=== PATIENT | male | born 1960 | race Caucasian/White ===

== ENCOUNTER 2018-07-19 16:22 | Emergency (ER) | payer BC ==
[2018-07-19] MEDS ORDERED: Ondansetron 4 MG/2 ML SDV IVPUSH ONE (16:50)
[2018-07-19] MEDS ORDERED: Sodium Chloride 0.9% 10 ML Syringe FLUSH PRN (16:50)
[2018-07-19] MEDS ORDERED: Sodium Chloride 0.9% 1,000 ML IV SCH (17:00)
--- NOTE | 2018-07-19 17:34 | EDM.PDOC ---
ED HPI GENERAL MEDICAL PROBLEM - General Chief Complaint: Gastrointestinal Problem Stated Complaint: NAUSEA Time Seen by Provider: 07/19/18 16:46 Source of Information: Reports: Patient History Limitations: Reports: No Limitations - History of Present Illness INITIAL COMMENTS - FREE TEXT/NARRATIVE: The patient presents with nausea and not feeling good. This started today. He has been drinking more lately. His girlfriend left him and he has increased his drinking. He has a subjective fever and chills. He has nausea and vomiting but no pain in his abdomen. He has no chest pain or shortness of breath. He did not take 4 of his meds. He was concerned that may be the cause. Onset: Gradual Duration: Hour(s): Severity: Moderate Improves with: Reports: None Worsens with: Reports: None Associated Symptoms: Reports: Nausea/Vomiting. Denies: Chest Pain, Cough, Fever /Chills, Headaches, Shortness of Breath - Related Data Allergies Allergy/AdvReac Type Severity Reaction Status Date / Time No Known Allergies Allergy Verified 07/19/18 16:30 Home Meds: Home Meds Aspirin 325 mg PO DAILY 12/25/14 [History] Carvedilol 12.5 mg PO BID 12/25/14 [History] Clopidogrel [Plavix] 75 mg PO DAILY 12/25/14 [History] Famotidine 20 mg PO BID 12/25/14 [History] Folic Acid 1 cap PO DAILY 12/25/14 [History] Magnesium Oxide 400 mg PO DAILY 12/25/14 [History] Nitroglycerin 0.4 mg SL DAILY PRN 12/25/14 [History] Thiamine [Vitamin B-1] 50 mg PO DAILY 12/25/14 [History] buPROPion [Wellbutrin SR] 150 mg PO BID 11/28/16 [History] Amiodarone [Cordarone] 400 mg PO DAILY 07/19/18 [History] Diltiazem HCl [Cardizem] 120 mg PO DAILY 07/19/18 [History] Past Medical History HEENT History: Reports: Impaired Vision Cardiovascular History: Reports: High Cholesterol, Hypertension, [place] Gastrointestinal History: Reports: GERD Neurological History: Reports: Other (See Below) Other Neuro History: seizures when he was younger, has not had a seizure for 40 years Other Psychiatric History: problems with alcohol - Past Surgical History GI Surgical History: Reports: Hernia Repair/Other Social & Family History - Family History Family Medical History: Noncontributory - Tobacco Use Smoking Status *Q: Former Smoker Used Tobacco, but Quit: No - Caffeine Use Caffeine Use: Reports: Soda - Alcohol Use Days Per Week of Alcohol Use: 7 Number of Drinks Per Day: 10 Total Drinks Per Week: 70 Date of Last Drink: 07/19/18 Time of Last Drink: 14:00 - Recreational Drug Use Recreational Drug Use: No Other Recreational Drug Type: quit smoking marijuana about a 1 year ago ED ROS GENERAL - Review of Systems Review Of Systems: See Below Constitutional: Reports: No Symptoms HEENT: Reports: No Symptoms Respiratory: Reports: No Symptoms Cardiovascular: Reports: No Symptoms Endocrine: Reports: No Symptoms GI/Abdominal: Reports: Nausea, Vomiting. Denies: Abdominal Pain, Diarrhea : Reports: No Symptoms Musculoskeletal: Reports: No Symptoms ED EXAM, GI/ABD - Physical Exam Exam: See Below Exam Limited By: No Limitations General Appearance: Alert, No Apparent Distress Ears: Normal External Exam Nose: Normal Inspection Head: Atraumatic, Normocephalic Neck: Normal Inspection Respiratory/Chest: No Respiratory Distress, Lungs Clear, Normal Breath Sounds Cardiovascular: Regular Rate, Rhythm, No Edema, No Murmur GI/Abdominal Exam: Soft, Non-Tender, No Organomegaly, No Mass Course - Vital Signs Last Recorded V/S: Last Vital Signs Temp 98.5 F 07/19/18 16:26 Pulse 92 07/19/18 16:26 Resp 18 07/19/18 16:26 BP 187/102 H 07/19/18 16:26 Pulse Ox 97 07/19/18 16:26 - Orders/Labs/Meds Orders: Active Orders 24 hr Category Date Time Status Cardiac Monitoring [RC] . DIRECTED Care 07/19/18 16:50 Active EKG Documentation Completion [RC] ASDIRECTED Care 07/19/18 17:46 Active Peripheral IV Care [RC] . DIRECTED Care 07/19/18 16:51 Active CXR [Chest 1V Frontal] [CR] Stat Exams 07/19/18 18:09 Ordered CBC W/O DIFF,HEMOGRAM [HEME] MOTH@0700 Lab 07/21/18 07:00 Ordered CBC W/O DIFF,HEMOGRAM [HEME] MOTH@0700 Lab 07/24/18 07:00 Ordered CBC W/O DIFF,HEMOGRAM [HEME] MOTH@0700 Lab 07/28/18 07:00 Ordered CBC W/O DIFF,HEMOGRAM [HEME] MOTH@0700 Lab 07/31/18 07:00 Ordered CBC W/O DIFF,HEMOGRAM [HEME] MOTH@0700 Lab 08/04/18 07:00 Ordered CBC W/O DIFF,HEMOGRAM [HEME] MOTH@0700 Lab 08/07/18 07:00 Ordered Heparin Sodium/D5W [Heparin 25,000 Units in D5W 500 ML] Med 07/19/18 18:15 Ordered 25,000 units in 500 ml IV TITRATE Nitroglycerin/D5W [Nitroglycerin 25 MG/D5W 250 ML] Med 07/19/18 18:15 Ordered 25 mg in 250 ml IV TITRATE Sodium Chloride 0.9% [Normal Saline] 1,000 ml Med 07/19/18 17:00 Active IV .BOLUS Sodium Chloride 0.9% [Saline Flush] Med 07/19/18 16:50 Active 10 ml FLUSH ASDIRECTED PRN ED Antiemetic Medication Reflex [OM.PC] Stat Oth 07/19/18 16:50 Ordered Peripheral IV Insertion Adult [OM.PC] Stat Oth 07/19/18 16:50 Ordered EKG 12 Lead [EK] Stat Ther 07/19/18 17:45 Ordered Medication Orders Sodium Chloride (Normal Saline) 1,000 mls @ 1,000 mls/hr IV .BOLUS DOMINIK Last Admin: 07/19/18 16:56 Dose: 1,000 mls/hr Heparin Sodium/Dextrose (Heparin 25,000 Units In D5w 500 Ml) 25,000 units in 500 mls @ 18.416 mls/hr IV TITRATE DOMINIK; Protocol Nitroglycerin/Dextrose (Nitroglycerin 25 Mg/D5w 250 Ml) 25 mg in 250 mls @ 3 mls/hr IV TITRATE DOMINIK; Protocol Sodium Chloride (Saline Flush) 10 ml FLUSH ASDIRECTED PRN PRN Reason: Keep Vein Open Last Admin: 07/19/18 16:56 Dose: 10 ml Labs: Laboratory Tests 07/19/18 07/19/18 07/19/18 Range/Units 16:43 16:43 16:43 WBC 6.39 (4.23-9.07) K/mm3 RBC 4.55 L (4.63-6.08) M/mm3 Hgb 15.0 (13.7-17.5) gm/L Hct 43.0 (40.1-51.0) % MCV 94.5 H (79.0-92.2) fl MCH 33.0 H (25.7-32.2) pg MCHC 34.9 (32.2-35.5) g/dl RDW Std Deviation 42.5 (35.1-43.9) fL Plt Count 230 (163-337) K/mm3 MPV 10.5 (9.4-12.3) fl Neut % (Auto) 66.6 (34.0-67.9) % Lymph % (Auto) 18.5 L (21.8-53.1) % Wirt % (Auto) 8.9 (5.3-12.2) % Eos % (Auto) 3.3 (0.8-7.0) Baso % (Auto) 2.5 H (0.1-1.2) % Neut # (Auto) 4.26 (1.78-5.38) K/mm3 Lymph # (Auto) 1.18 L (1.32-3.57) K/mm3 Wirt # (Auto) 0.57 (0.30-0.82) K/mm3 Eos # (Auto) 0.21 (0.04-0.54) K/mm3 Baso # (Auto) 0.16 H (0.01-0.08) K/mm3 Sodium 140 (136-145) mEq/L Potassium 3.4 L (3.5-5.1) mEq/L Chloride 103 (98-107) mEq/L Carbon Dioxide 26 (21-32) mEq/L Anion Gap 14.4 (5-15) BUN 7 (7-18) mg/dL Creatinine 1.2 (0.7-1.3) mg/dL Est Cr Clr Drug Dosing 57.56 mL/min Estimated GFR (MDRD) > 60 (>60) mL/min BUN/Creatinine Ratio 5.8 L (14-18) Glucose 115 H (74-106) mg/dL Calcium 8.7 (8.5-10.1) mg/dL Total Bilirubin 0.8 (0.2-1.0) mg/dL AST 64 H (15-37) U/L ALT 46 (16-63) U/L Alkaline Phosphatase 41 L (46-116) U/L Troponin I 0.194 H* (0.00-0.056) ng/mL Total Protein 7.6 (6.4-8.2) g/dl Albumin 4.0 (3.4-5.0) g/dl Globulin 3.6 gm/dL Albumin/Globulin Ratio 1.1 (1-2) Lipase 126 (73-393) U/L Ethyl Alcohol 0.01 (0.00) gm% Meds: Medications Generic Name Dose Route Start Last Admin Trade Name Freq PRN Reason Stop Dose Admin Sodium Chloride 1,000 mls @ 1,000 mls/hr 07/19/18 17:00 07/19/18 16:56 Normal Saline IV 1,000 mls/hr .BOLUS DOMINIK Administration Heparin Sodium/Dextrose 25,000 units in 500 mls @ 18.416 mls/hr 07/19/18 18: 15 Heparin 25,000 Units In D5w 500 Ml IV TITRATE DOMINIK Protocol 14 UNITS/KG/HR Nitroglycerin/Dextrose 25 mg in 250 mls @ 3 mls/hr 07/19/18 18:15 Nitroglycerin 25 Mg/D5w 250 Ml IV TITRATE DOMINIK Protocol Sodium Chloride 10 ml 07/19/18 16:50 07/19/18 16:56 Saline Flush FLUSH 10 ml ASDIRECTED PRN Administration Keep Vein Open Discontinued Medications Generic Name Dose Route Start Last Admin Trade Name Alanq PRN Reason Stop Dose Admin Aspirin 324 mg 07/19/18 18:10 Aspirin PO 07/19/18 18:11 ONETIME ONE Heparin Sodium (Porcine) 4,000 units 07/19/18 18:12 Heparin Sodium IVPUSH 07/19/18 18:13 ONETIME ONE Metoprolol Tartrate 5 mg 07/19/18 18:14 Lopressor IVPUSH 07/19/18 18:15 ONETIME ONE Ondansetron HCl 4 mg 07/19/18 16:50 07/19/18 16:56 Zofran IVPUSH 07/19/18 16:51 4 mg ONETIME ONE Administration Pantoprazole Sodium 40 mg 07/19/18 17:46 07/19/18 17:52 Protonix Iv IVPUSH 07/19/18 17:47 40 mg ONETIME ONE Administration - Re-Assessments/Exams Free Text/Narrative Re-Assessment/Exam: 07/19/18 17:39 I ordered an IV NS 1L bolus, zofran 4mg IV and labs. His CBC looks good. His K is a little low at 3.4. His glucose is 115. His AST is elevated at 64. His lipase is negative. His ETOH was 0.01. 07/19/18 18:15 He is feeling better. He says he has some burning in his chest. He has reflux and that is normal for him. I then got an EKG that shows a NSR at a rate of [address] depression in the lateral leads. I then ordered a troponin. His troponin came back elevated at 0.194. He is having a nonSTEMI. I ordered a CXR, aspirin, nitro drip, heparin bolus of 4,000 units and a drip at 1,000untis/hr. I called [facility] in [place] and talked with Dr Galarza the hospitalist and Dr Pérez the chrome plater helper and they accepted the patient. His blood pressure was elevated so I ordered lopressor. 07/19/18 18:23 Dr Pérez did not want the heparin for now because the patient is a heavy drinker and he may have some esophageal issues and that could make him bleed. He wanted the troponins rechecked and his blood pressure treated. Departure - Departure Time of Disposition: 18:25 Disposition: DC/Tfer to Acute Hospital 02 Condition: Fair Clinical Impression: Non-STEMI (non-ST elevated myocardial infarction), Alcohol abuse - Discharge Information Referrals: Danilo Barker MD [Primary Care Provider] - Forms: ED Department Discharge - My Orders Last 24 Hours: My Active Orders 07/19/18 16:50 Cardiac Monitoring [RC] . DIRECTED Sodium Chloride 0.9% [Saline Flush] 10 ml FLUSH ASDIRECTED PRN ED Antiemetic Medication Reflex [OM.PC] Stat Peripheral IV Insertion Adult [OM.PC] Stat 07/19/18 16:51 Peripheral IV Care [RC] . DIRECTED 07/19/18 17:00 Sodium Chloride 0.9% [Normal Saline] 1,000 ml IV .BOLUS 07/19/18 17:45 EKG 12 Lead [EK] Stat 07/19/18 17:46 EKG Documentation Completion [RC] ASDIRECTED 07/19/18 18:09 CXR [Chest 1V Frontal] [CR] Stat 07/19/18 18:15 Heparin Sodium/D5W [Heparin 25,000 Units in D5W 500 ML] 25,000 units in 500 ml IV TITRATE Nitroglycerin/D5W [Nitroglycerin 25 MG/D5W 250 ML] 25 mg in 250 ml IV TITRATE 07/21/18 07:00 CBC W/O DIFF,HEMOGRAM [HEME] MOTH@0700 07/24/18 07:00 CBC W/O DIFF,HEMOGRAM [HEME] MOTH@00 07/28/18 07:00 CBC W/O DIFF,HEMOGRAM [HEME] MOTH@00 07/31/18 07:00 CBC W/O DIFF,HEMOGRAM [HEME] MOTH@0700 08/04/18 07:00 CBC W/O DIFF,HEMOGRAM [HEME] MOTH@0700 08/07/18 07:00 CBC W/O DIFF,HEMOGRAM [HEME] MOTH@0700 - Assessment/Plan Last 24 Hours: My Active Orders 07/19/18 16:50 Cardiac Monitoring [RC] . DIRECTED Sodium Chloride 0.9% [Saline Flush] 10 ml FLUSH ASDIRECTED PRN ED Antiemetic Medication Reflex [OM.PC] Stat Peripheral IV Insertion Adult [OM.PC] Stat 07/19/18 16:51 Peripheral IV Care [RC] . DIRECTED 07/19/18 17:00 Sodium Chloride 0.9% [Normal Saline] 1,000 ml IV .BOLUS 07/19/18 17:45 EKG 12 Lead [EK] Stat 07/19/18 17:46 EKG Documentation Completion [RC] ASDIRECTED 07/19/18 18:09 CXR [Chest 1V Frontal] [CR] Stat 07/19/18 18:15 Heparin Sodium/D5W [Heparin 25,000 Units in D5W 500 ML] 25,000 units in 500 ml IV TITRATE Nitroglycerin/D5W [Nitroglycerin 25 MG/D5W 250 ML] 25 mg in 250 ml IV TITRATE 07/21/18 07:00 CBC W/O DIFF,HEMOGRAM [HEME] MOTH@0700 07/24/18 07:00 CBC W/O DIFF,HEMOGRAM [HEME] MOTH@0700 18 07:00 CBC W/O DIFF,HEMOGRAM [HEME] MOTH@69907/31/18 07:00 CBC W/O DIFF,HEMOGRAM [HEME] MOTH@69908/04/18 07:00 CBC W/O DIFF,HEMOGRAM [HEME] MOTH@69908/07/18 07:00 CBC W/O DIFF,HEMOGRAM [HEME] MOTH@699
[2018-07-19] MEDS ORDERED: Pantoprazole 40 MG Vial IVPUSH ONE (17:46)
[2018-07-19] MEDS ORDERED: Aspirin 81 MG Tab.Chew PO ONE (18:10)
[2018-07-19] MEDS ORDERED: Heparin Sodium 5,000 Units/ML Vial IVPUSH ONE (18:12)
[2018-07-19] MEDS ORDERED: Metoprolol Tartrate 5 MG/5 ML SDV IVPUSH ONE (18:14)
[2018-07-19] MEDS ORDERED: Metoprolol Tartrate 5 MG in Sodium Chloride 0.9% 50 ML IV ONE (18:14)
[2018-07-19] MEDS ORDERED: Heparin Sodium/D5W 25,000 UNITS/500 ML BAG IV SCH (18:15)
[2018-07-19] MEDS ORDERED: Nitroglycerin/D5W 25 MG/250 ML BOTTLE IV SCH (18:15)
[2018-07-19] MEDS ORDERED: Metoprolol Tartrate 5 MG/5 ML SDV ONE (18:44)
[2018-07-19] MEDS ORDERED: Metoprolol Tartrate 5 MG/5 ML SDV IVPUSH SCH (18:45)
[2018-07-19 18:53] VITALS: BP 162/93
--- NOTE | 2018-07-21 07:13 | CR ---
Chest: Portable view of the chest was obtained. Comparison: Prior chest x-ray of 11/28/16. Heart size and mediastinum are within normal limits for portable technique. AICD is present. Lungs are clear with no acute parenchymal change. Bony structures are grossly intact. Impression: 1. Nothing acute is seen on portable chest x-ray. Diagnostic code #2
== END 2018-07-19 19:00 ==
LOC: JD.ED 16:22
DX: I21.4 Non-ST elevation (NSTEMI) myocardial infarction (principal); I10 Essential (primary) hypertension; F10.10 Alcohol abuse, uncomplicated; Y90.0 Blood alcohol level of less than 20 mg/100 ml; Z79.82 Long term (current) use of aspirin; Z87.891 Personal history of nicotine dependence
CPT/HCPCS: 36415; 71045; 80053; 83690; 84484; 85025; 93005; 96361; 96365; 96375; 99285; A9270; C9113; G0480; J2405; J3490; J7040; J7050; 93010

== ENCOUNTER 2019-12-20 00:38 | Emergency (ER) | payer BC ==
[2019-12-20 01:06] VITALS: BP 150/82; PULSE 63
[2019-12-20] MEDS ORDERED: Sodium Chloride 0.9% 10 ML Syringe FLUSH PRN (01:30)
[2019-12-20] MEDS ORDERED: diphenhydrAMINE 50 MG/ML SDV IVPUSH ONE (01:31)
[2019-12-20] MEDS ORDERED: Metoclopramide 10 MG/2 ML SDV IVPUSH ONE (01:31)
[2019-12-20] MEDS ORDERED: Ketorolac 30 MG/ML SDV IVPUSH ONE (01:31)
--- NOTE | 2019-12-20 01:52 | EDM.PDOC ---
ED HPI GENERAL MEDICAL PROBLEM - General Chief Complaint: Headache Stated Complaint: neck pain and headache Time Seen by Provider: 12/20/19 01:07 Source of Information: Reports: Patient History Limitations: Reports: No Limitations - History of Present Illness INITIAL COMMENTS - FREE TEXT/NARRATIVE: The patient presents with a headache and neck pain. He says the neck pain started yesterday and got worse and now he has a headache. He has no fever, chills, cough, congestion, runny nose, chest pain, shortness of breath, abdominal pain, nausea or vomiting. He had no trauma. He has no numbness or weakness. He has no blurred vision or double vision. He says he quit drinking about 10 days ago. He is not shaking and has no other withdrawal symptoms. Onset: Sudden Duration: Hour(s): Location: Reports: Head Quality: Reports: Ache Severity: Severe Improves with: Reports: None Worsens with: Reports: None Associated Symptoms: Reports: Headaches. Denies: Chest Pain, Cough, Fever/ Chills, Nausea/Vomiting, Shortness of Breath Headache Pain Score (Numeric/FACES): 10 - Related Data Allergies Allergy/AdvReac Type Severity Reaction Status Date / Time No Known Allergies Allergy Verified 12/20/19 01:12 Home Meds: Home Meds Aspirin 325 mg PO DAILY 12/25/14 [History] Clopidogrel [Plavix] 75 mg PO DAILY 12/25/14 [History] Famotidine 20 mg PO BID 12/25/14 [History] Folic Acid 1 cap PO DAILY 12/25/14 [History] Magnesium Oxide 400 mg PO DAILY 12/25/14 [History] Nitroglycerin 0.4 mg SL DAILY PRN 12/25/14 [History] Thiamine [Vitamin B-1] 50 mg PO DAILY 12/25/14 [History] carvediloL [Carvedilol] 12.5 mg PO BID 12/25/14 [History] Cyclobenzaprine [Flexeril] 10 mg PO TID PRN #20 tab 12/20/19 [Rx] Past Medical History HEENT History: Reports: Impaired Vision Cardiovascular History: Reports: Arrhythmia, CAD, High Cholesterol, Hypertension , [place] Gastrointestinal History: Reports: GERD Neurological History: Reports: Seizure Other Neuro History: seizures when he was younger, has not had a seizure for 40 years Psychiatric History: Reports: Addiction Other Psychiatric History: problems with alcohol - Past Surgical History Cardiovascular Surgical History: Reports: AICD, Coronary Artery Stent GI Surgical History: Reports: Hernia, Inguinal Social & Family History - Family History Family Medical History: Noncontributory - Tobacco Use Smoking Status *Q: Former Smoker Years of Tobacco use: 35 Used Tobacco, but Quit: Yes Month/Year Tobacco Last Used: 2 - Caffeine Use Caffeine Use: Reports: Soda - Recreational Drug Use Recreational Drug Use: Yes Drug Use in Last 12 Months: No Recreational Drug Type: Reports: Marijuana/Hashish - Living Situation & Occupation Living situation: Reports: (), with Family (Son) Occupation: Employed ([email or web address]) ED ROS GENERAL - Review of Systems Review Of Systems: See Below Constitutional: Reports: No Symptoms HEENT: Reports: No Symptoms Respiratory: Reports: No Symptoms Cardiovascular: Reports: No Symptoms Endocrine: Reports: No Symptoms GI/Abdominal: Reports: No Symptoms : Reports: No Symptoms Musculoskeletal: Reports: Neck Pain Skin: Reports: No Symptoms Neurological: Reports: Headache - Physical Exam Exam: See Below Exam Limited By: No Limitations General Appearance: Alert, No Apparent Distress Eye Exam: Bilateral Eye: EOMI, PERRL Ears: Normal External Exam Nose: Normal Inspection Head Exam: Atraumatic, Normocephalic Neck: Tender Lateral Respiratory/Chest: No Respiratory Distress, Lungs Clear, Normal Breath Sounds Cardiovascular: Regular Rate, Rhythm, No Edema, No Murmur GI/Abdominal: Soft, Non-Tender, No Organomegaly, No Mass Neuro Exam (Abbreviated): Alert, Oriented, No Motor/Sensory Deficits Course - Vital Signs Last Recorded V/S: Last Vital Signs Temp 97.6 F 12/20/19 01:00 Pulse 63 12/20/19 01:00 Resp 18 12/20/19 01:00 BP 150/82 H 12/20/19 01:00 Pulse Ox 98 12/20/19 01:00 - Orders/Labs/Meds Orders: Active Orders 24 hr Category Date Time Status Peripheral IV Care [RC] . DIRECTED Care 12/20/19 01:31 Active Cervical Spine wo Cont [CT] Stat Exams 12/20/19 01:30 Taken Head wo Cont [CT] Stat Exams 12/20/19 01:30 Taken Sodium Chloride 0.9% [Saline Flush] Med 12/20/19 01:30 Active 10 ml FLUSH ASDIRECTED PRN Peripheral IV Insertion Adult [OM.PC] Routine Oth 12/20/19 01:30 Ordered Medication Orders Sodium Chloride (Saline Flush) 10 ml FLUSH ASDIRECTED PRN PRN Reason: Keep Vein Open Last Admin: 12/20/19 01:50 Dose: 10 ml Meds: Medications Generic Name Dose Route Start Last Admin Trade Name Freq PRN Reason Stop Dose Admin Sodium Chloride 10 ml 12/20/19 01:30 12/20/19 01:50 Saline Flush FLUSH 10 ml ASDIRECTED PRN Administration Keep Vein Open Discontinued Medications Generic Name Dose Route Start Last Admin Trade Name Freq PRN Reason Stop Dose Admin Diphenhydramine HCl 50 mg 12/20/19 01:31 12/20/19 01:52 Benadryl IVPUSH 12/20/19 01:32 50 mg ONETIME ONE Administration Ketorolac Tromethamine 30 mg 12/20/19 01:31 12/20/19 01:50 Toradol IVPUSH 12/20/19 01:32 30 mg ONETIME ONE Administration Metoclopramide HCl 10 mg 12/20/19 01:31 12/20/19 01:49 Reglan IVPUSH 12/20/19 01:32 10 mg ONETIME ONE Administration - Re-Assessments/Exams Free Text/Narrative Re-Assessment/Exam: 12/20/19 01:51 I ordered an IV saline lock, toradol 30mg IV, benadryl 50mg IV, reglan 10mg IV, CT of her head and cervical spine. 12/20/19 02:[address] of his head shows atrophy and chronic white matter changes. No acute intracranial abnormality. Calcified retinal drusen in both eyes. The CT of his cervical spine shows no fracture of malalignment. Mild degenerative spondylosis. He still has pain so I will give him a dose of dilaudid and I will discharge him home. I feel this is coming from his neck. Departure - Departure Time of Disposition: 02:45 Disposition: Home, Self-Care 01 Condition: Good Clinical Impression: Tension-type headache, Neck pain - Discharge Information *PRESCRIPTION DRUG MONITORING PROGRAM REVIEWED*: No *COPY OF PRESCRIPTION DRUG MONITORING REPORT IN PATIENT NIDHI: No Prescriptions: Cyclobenzaprine [Flexeril] 10 mg PO TID PRN #20 tab PRN Reason: Pain Referrals: Danilo Barker MD [Primary Care Provider] - Forms: ED Department Discharge Additional Instructions: Take tylenol or motrin for pain. If that does not help, try the flexeril. Follow up with your doctor this week. Please return if you are worse. Sepsis Event Note - Evaluation Sepsis Screening Result: No Definite Risk - Focused Exam Vital Signs: Vital Signs Temp Pulse Resp BP Pulse Ox 12/20/19 01:00 97.6 F 63 18 150/82 H 98 Date Exam was Performed: 12/20/19 Time Exam was Performed: 02:38 - My Orders Last 24 Hours: My Active Orders 12/20/19 01:30 Cervical Spine wo Cont [CT] Stat Head wo Cont [CT] Stat Sodium Chloride 0.9% [Saline Flush] 10 ml FLUSH ASDIRECTED PRN Peripheral IV Insertion Adult [OM.PC] Routine 12/20/19 01:31 Peripheral IV Care [RC] . DIRECTED - Assessment/Plan Last 24 Hours: My Active Orders 12/20/19 01:30 Cervical Spine wo Cont [CT] Stat Head wo Cont [CT] Stat Sodium Chloride 0.9% [Saline Flush] 10 ml FLUSH ASDIRECTED PRN Peripheral IV Insertion Adult [OM.PC] Routine 12/20/19 01:31 Peripheral IV Care [RC] . DIRECTED
[2019-12-20] MEDS ORDERED: HYDROmorphone 0.5 MG/0.5 ML Syringe IVPUSH ONE (02:42)
--- NOTE | 2019-12-20 09:38 | CT ---
CT cervical spine Technique: Multiple axial sections were obtained from above C1 inferiorly to the bottom of T2. Reconstructed sagittal and coronal images were reviewed. Comparison: Prior CT cervical spine exam of 10/18/11. Findings: Posterior disc space narrowing is noted at C2-3. Mild diffuse disc space narrowing at C6-7. Moderate to severe disc space narrowing is noted at C7-T1. Anterior osteophytes are seen primarily at C7-T1. Degenerative change is also noted between the dens and anterior arch of C1. Mild degenerative change is scattered within the apophyseal joints. Moderate neural foraminal narrowing is noted at C3-4 on the left side. Other neural foramina are felt to be fairly well patent. No bony central canal stenosis is seen. No fracture is appreciated. No acute subluxation is appreciated. Impression: 1. Degenerative change which has progressed from previous exam. 2. Nothing acute is appreciated on CT study of the cervical spine. Diagnostic code #2 This report was dictated in [place] Standard Time I agree with preliminary report from [facility], finalized on 12/20/19, 3:25 AM Central Time
--- NOTE | 2019-12-20 09:38 | CT ---
Head CT Technique: Multiple axial sections through the brain were obtained. Intravenous contrast was not utilized. Comparison: Prior head CT exam of 10/18/11. Findings: Areas of encephalomalacia are identified overlying the left parietal convexity. These findings are stable from previous exam. Previous lewis holes are identified bilaterally within the calvarium. Ventricles along with basal cisterns and sulci over the convexities are mildly prominent. Minimal diminished density is noted within the periventricular white matter most likely representing slight small vessel ischemic demyelination change. No evidence of intracranial hemorrhage. No midline shift or mass-effect is appreciated. Calcified retinal drusen are noted on both sides, slightly more prominent on the left side. Bone window settings shows no acute calvarial finding. Scattered mucosal thickening is seen within the ethmoid sinuses believed to be chronic. No acute mastoid sinus findings are seen. Impression: 1. Multiple findings as noted above. 2. Nothing acute is identified on noncontrast head CT exam. Diagnostic code #2 This report was dictated in [place] Standard Time I agree with preliminary report from [facility], finalized on 12/20/19, 3:30 AM Central Time
== END 2019-12-20 03:00 | disposition home or self-care (01) ==
LOC: JD.ED 00:38
DX: G44.209 Tension-type headache, unspecified, not intractable (principal); M54.2 Cervicalgia; I25.10 Atherosclerotic heart disease of native coronary artery without angina pectoris; I10 Essential (primary) hypertension; I25.2 Old myocardial infarction; K21.9 Gastro-esophageal reflux disease without esophagitis; Z95.5 Presence of coronary angioplasty implant and graft; Z95.810 Presence of automatic (implantable) cardiac defibrillator; Z79.82 Long term (current) use of aspirin; Z79.02 Long term (current) use of antithrombotics/antiplatelets; Z79.899 Other long term (current) drug therapy; Z87.891 Personal history of nicotine dependence
CPT/HCPCS: 70450; 72125; 96374; 96375; 99284; J1170; J1200; J1885; J2765

== ENCOUNTER 2021-10-17 13:51 | Emergency (ER) | payer BC ==
[2021-10-17 14:27] VITALS: BP 121/77; PULSE 78
--- NOTE | 2021-10-17 15:05 | EDM.PDOC ---
<CayugaJayleen V - Last Filed: 10/17/21 17:20> ED HPI GENERAL MEDICAL PROBLEM - General Chief Complaint: General Stated Complaint: ELEVATED LABS Time Seen by Provider: 10/17/21 14:10 - Related Data Allergies Allergy/AdvReac Type Severity Reaction Status Date / Time No Known Allergies Allergy Verified 10/17/21 14:07 Home Meds: Home Meds Aspirin 325 mg PO DAILY 12/25/14 [History] Clopidogrel [Plavix] 75 mg PO DAILY 12/25/14 [History] Famotidine 20 mg PO BID 12/25/14 [History] Folic Acid 1 cap PO DAILY 12/25/14 [History] Magnesium Oxide 400 mg PO DAILY 12/25/14 [History] Nitroglycerin 0.4 mg SL DAILY PRN 12/25/14 [History] Thiamine [Vitamin B-1] 50 mg PO DAILY 12/25/14 [History] carvediloL [Carvedilol] 12.5 mg PO BID 12/25/14 [History] Cyclobenzaprine [Flexeril] 10 mg PO TID PRN #20 tab 12/20/19 [Rx] Levofloxacin [Levaquin] 500 mg PO DAILY #7 tablet 10/17/21 [Rx] Course - Re-Assessments/Exams Free Text/Narrative Re-Assessment/Exam: 10/17/21 17:20 Labs have resulted, white count mildly elevated at 9.17, metabolic panel essentially unremarkable CRP elevated at 6.8. Lipase and amylase are either low or within normal limits. Patient did have a prolonged wait for labs at today's visit, patient states that he was told he had an infection from the walk-in clinic so he would like to be placed on antibiotics I told him however this is not something that is clinically indicated but he would like to be placed on antibiotics for this. Pain is under control, nausea is under control. We will try a short course of Levaquin to see if this helps. Departure - Departure Time of Disposition: 17:21 Disposition: Home, Self-Care 01 Condition: Good Clinical Impression: Pancreatitis, acute Qualifiers: Pancreatitis type: other Acute pancreatitis complication: unspecified Qualified Code(s): K85.80 - Other acute pancreatitis without necrosis or infection - Discharge Information *PRESCRIPTION DRUG MONITORING PROGRAM REVIEWED*: No *COPY OF PRESCRIPTION DRUG MONITORING REPORT IN PATIENT NIDHI: No Prescriptions: Levofloxacin [Levaquin] 500 mg PO DAILY #7 tablet Instructions: Acute Pancreatitis, [id number] Referrals: Danilo Barker MD [Primary Care Provider] - Forms: ED Department Discharge Additional Instructions: You were evaluated in the ER today for your abnormal labs done at the walk-in clinic yesterday. Your labs performed at today's visit does demonstrate slightly elevated white count, and elevated inflammatory markers. Your lipase and amylase were in nor mal limits. Typically this is treated with fluids, pain meds and nausea meds. However you state your pain and nausea is under control at this time. You have been started on oral antibiotic, Levaquin you will need to take 1 tablet daily for the next 7 days. This medication was electronically sent to the [facility] located on [address]. Do not hesitate to return to the ER at any time if symptoms change or worsen. <Kristopher Bhakta - Last Filed: 10/18/21 08:19> ED HPI GENERAL MEDICAL PROBLEM - General Source of Information: Reports: Patient History Limitations: Reports: No Limitations - History of Present Illness INITIAL COMMENTS - FREE TEXT/NARRATIVE: 60-year-old male presents the emergency department after being found by [facility] to report to the emergency department due to an elevation in one of his lab results from yesterday. Per the patient report, he states that he went to the walk-in clinic yesterday due to abdominal pain, nausea and vomiting. He states they did lab studies on him and he received IV fluids while there. He states that prior to departure from the walk-in clinic he developed severe back pain located in the middle of his back. He states he then went home. Reports that he is feeling much better today. Not having any abdominal pain, nausea or vomiting and is eating and drinking well. Of note, patient does have a significant history of alcohol use. States he drinks a pint of whiskey per day as well as [employer]. [facility] WBC 9.4, hemoglobin 15.4, hematocrit 45.0, platelet count 181, glucose 160, sodium 138, potassium 3.4, chloride 99, carbon dioxide 25, anion gap 17, BUN 14, creatinine 1.45, total bilirubin 1.8, alk phos 108, ALT 35, AST 125, amylase 1151, lipase 18 Radiology studies that were completed at the walk-in clinic: 3 view lumbar spine findings: There is maintenance of the normal lumbar lordosis with disc space narrowing at the level of L5-S1. Facet joint arthroplasty is noted at multiple levels. Narrowing of the SI joints is noted bilaterally. Calcified plaque is noted within the aorta. Impression: Degenerative spondylolysis as mentioned above Two view of the right scapula findings: The elbow clavicle and scapula appear unremarkable with no obvious scapular fractures. The glenohumeral joint and proximal humerus are also unremarkable. Past Medical History HEENT History: Reports: Impaired Vision Cardiovascular History: Reports: Arrhythmia, CAD, High Cholesterol, Hypertension, CA Gastrointestinal History: Reports: GERD Neurological History: Reports: Seizure Other Neuro History: seizures when he was younger, has not had a seizure for 40 years Psychiatric History: Reports: Addiction Other Psychiatric History: problems with alcohol - Past Surgical History Cardiovascular Surgical History: Reports: AICD, Coronary Artery Stent GI Surgical History: Reports: Hernia, Inguinal Social & Family History - Family History Family Medical History: No Pertinent Family History - Tobacco Use Tobacco Use Status *Q: Never Tobacco User Second Hand Smoke Exposure: No - Caffeine Use Caffeine Use: Reports: Soda - Recreational Drug Use Recreational Drug Use: No - Living Situation & Occupation Living situation: Reports: (), with Family (Son) Occupation: Employed ([employer]) ED ROS GENERAL - Review of Systems Review Of Systems: Comprehensive ROS is negative, except as noted in HPI. ED EXAM, GENERAL - Physical Exam Exam: See Below Exam Limited By: No Limitations General Appearance: Alert, WD/WN, No Apparent Distress Ears: Normal External Exam, Hearing Grossly Normal Nose: Normal Inspection Throat/Mouth: Normal Inspection, Normal Lips, Normal Voice, No Airway Compromise Head: Atraumatic, Normocephalic Neck: Normal Inspection, Supple Respiratory/Chest: No Respiratory Distress, Lungs Clear, Normal Breath Sounds, No Accessory Muscle Use, Chest Non-Tender Cardiovascular: Normal Peripheral Pulses, Regular Rate, Rhythm, No Edema, No Murmur GI/Abdominal: Normal Bowel Sounds, Soft, Non-Tender, No Distention (Male) Exam: Deferred Rectal (Males) Exam: Deferred Back Exam: Normal Inspection Extremities: No Pedal Edema, Normal Capillary Refill, Limited Range of Motion (Right arm due to it being in a sling), Other (Right arm in a sling). No: Normal Inspection Neurological: Alert, Oriented, Normal Cognition Psychiatric: Normal Affect, Normal Mood Skin Exam: Warm, Dry, Intact, Normal Color, No Rash Lymphatic: No Adenopathy Course - Vital Signs Text/Narrative:: As stated above, patient sent to the emergency department from [facility] after amylase level was found to be elevated yesterday. Patient is awake alert and oriented. He denies having any nausea, vomiting, diarrhea, fever, chills or urinary symptoms. Patient is hemodynamically stable. Physical exam is essentially unremarkable other than the fact that the patient has his right arm in a sling that he states he injured a few days ago after falling on the ice. Will obtain lab studies to include a CBC, CMP, C-reactive protein, magnesium level, lipase and amylase. Last Recorded V/S: Last Vital Signs Temp 98.1 F 10/17/21 14:20 Pulse 78 10/17/21 14:20 Resp 16 10/17/21 14:20 BP 121/77 10/17/21 14:20 Pulse Ox 99 10/17/21 14:20 - Orders/Labs/Meds Labs: Laboratory Tests 10/17/21 10/17/21 10/17/21 Range/Units 15:14 15:14 15:14 WBC 9.17 H (4.23-9.07) K/mm3 RBC 3.92 L (4.63-6.08) M/mm3 Hgb 13.1 L D (13.7-17.5) gm/dl Hct 40.0 L (40.1-51.0) % MCV 102.0 H D (79.0-92.2) fl MCH 33.4 H (25.7-32.2) pg MCHC 32.8 (32.2-35.5) g/dl RDW Std Deviation 46.2 H (35.1-43.9) fL Plt Count 170 (163-337) K/mm3 MPV 10.9 (9.4-12.3) fl Neut % (Auto) 72.7 H (34.0-67.9) % Lymph % (Auto) 15.6 L (21.8-53.1) % [place] % (Auto) 9.6 (5.3-12.2) % Eos % (Auto) 1.2 (0.8-7.0) Baso % (Auto) 0.7 (0.1-1.2) % Neut # (Auto) 6.67 H (1.78-5.38) K/mm3 Lymph # (Auto) 1.43 (1.32-3.57) K/mm3 [place] # (Auto) 0.88 H (0.30-0.82) K/mm3 Eos # (Auto) 0.11 (0.04-0.54) K/mm3 Baso # (Auto) 0.06 (0.01-0.08) K/mm3 Sodium 143 (136-145) mEq/L Potassium 3.4 L (3.5-5.1) mEq/L Chloride 105 (98-107) mEq/L Carbon Dioxide 30 (21-32) mEq/L Anion Gap 11.4 (5-15) BUN 16 (7-18) mg/dL Creatinine 1.2 (0.7-1.3) mg/dL Est Cr Clr Drug Dosing TNP Estimated GFR (MDRD) > 60 (>60) mL/min BUN/Creatinine Ratio 13.3 L (14-18) Glucose 116 H (70-99) mg/dL Calcium 7.6 L (8.5-10.1) mg/dL Magnesium 2.1 (1.8-2.4) mg/dL Total Bilirubin 0.6 (0.2-1.0) mg/dL AST 70 H (15-37) U/L ALT 31 (16-63) U/L Alkaline Phosphatase 65 (46-116) U/L C-Reactive Protein 6.8 H* (<1.0) mg/dL Total Protein 5.8 L (6.4-8.2) g/dl Albumin 2.7 L (3.4-5.0) g/dl Globulin 3.1 gm/dL Albumin/Globulin Ratio 0.9 L (1-2) Amylase 92 (25-115) U/L Lipase 56 L (73-393) U/L Sepsis Event Note (ED) - Evaluation Sepsis Screening Result: No Definite Risk
== END 2021-10-17 17:35 | disposition home or self-care (01) ==
LOC: JD.ED 13:51
DX: K85.80 Other acute pancreatitis without necrosis or infection (principal); I25.10 Atherosclerotic heart disease of native coronary artery without angina pectoris; I10 Essential (primary) hypertension; I25.2 Old myocardial infarction; K21.9 Gastro-esophageal reflux disease without esophagitis; Z79.82 Long term (current) use of aspirin; Z79.02 Long term (current) use of antithrombotics/antiplatelets; Z79.899 Other long term (current) drug therapy
CPT/HCPCS: 36415; 80053; 82150; 83690; 83735; 85025; 86140; 99284

== ENCOUNTER 2022-02-25 17:27 | Emergency (ER) | payer BC ==
[2022-02-25 18:14] VITALS: BP 170/95; PULSE 85
== END 2022-02-25 19:27 | disposition home or self-care (01) ==
LOC: JD.ED 17:27
DX: S22.32XA Fracture of one rib, left side, initial encounter for closed fracture (principal); F10.20 Alcohol dependence, uncomplicated; I25.10 Atherosclerotic heart disease of native coronary artery without angina pectoris; E78.00 Pure hypercholesterolemia, unspecified; K21.9 Gastro-esophageal reflux disease without esophagitis; I10 Essential (primary) hypertension; F17.210 Nicotine dependence, cigarettes, uncomplicated; Z79.899 Other long term (current) drug therapy; Z79.82 Long term (current) use of aspirin; Z79.01 Long term (current) use of anticoagulants; W01.0XXA Fall on same level from slipping, tripping and stumbling without subsequent striking against object, initial encounter
CPT/HCPCS: 99283

== ENCOUNTER 2022-03-22 08:49 | Emergency (ER) | payer BC ==
[2022-03-22 09:34] VITALS: PULSE 110
[2022-03-22] MEDS ORDERED: Sodium Chloride 0.9% 10 ML Syringe FLUSH PRN (09:37)
[2022-03-22] MEDS ORDERED: Sodium Chloride 0.9% 1,000 ML IV SCH ×2 (09:45→12:30)
[2022-03-22] MEDS: LORazepam 2 MG/ML SDV IVPUSH ONE ×2 (10:19→11:56)
[2022-03-22] MEDS ORDERED: Magnesium Sulfate/Water 2 GM in Premix Bag 1 BAG IV ONE (10:43)
[2022-03-22] MEDS ORDERED: HYDROmorphone 1 MG/ML Syringe IVPUSH ONE (10:57)
[2022-03-22] MEDS ORDERED: LORazepam 2 MG/ML SDV IVPUSH ONE ×3 (11:27→14:33)
[2022-03-22 17:28] VITALS: BP 126/107
== END 2022-03-22 15:45 ==
LOC: JD.ED 08:49
DX: N28.9 Disorder of kidney and ureter, unspecified (principal); F10.231 Alcohol dependence with withdrawal delirium; E83.42 Hypomagnesemia; I25.10 Atherosclerotic heart disease of native coronary artery without angina pectoris; E78.00 Pure hypercholesterolemia, unspecified; I10 Essential (primary) hypertension; I25.2 Old myocardial infarction; Z79.82 Long term (current) use of aspirin; Z79.01 Long term (current) use of anticoagulants; Z79.899 Other long term (current) drug therapy; Z20.822 Contact with and (suspected) exposure to COVID-19; Y90.0 Blood alcohol level of less than 20 mg/100 ml
CPT/HCPCS: 36415; 70450; 80053; 80306; 80307; 83690; 83735; 85025; 87635; 93005; 96361; 96374; 96375; 96376; 99285; J1170; J2060; J3475; J3490; J7030; 93010; 99284; U0002

== ENCOUNTER 2022-05-16 09:49 | Emergency (ER) | payer BC, MEDICAID ==
[2022-05-16 10:04] VITALS: BP 131/73; PULSE 71
[2022-05-16] MEDS ORDERED: Acetaminophen/HYDROcodone 325-5 MG Tab PO ONE (10:28)
== END 2022-05-16 12:42 | disposition home or self-care (01) ==
LOC: JD.ED 09:49
DX: S80.02XA Contusion of left knee, initial encounter (principal); K21.9 Gastro-esophageal reflux disease without esophagitis; I25.10 Atherosclerotic heart disease of native coronary artery without angina pectoris; E78.00 Pure hypercholesterolemia, unspecified; I10 Essential (primary) hypertension; I25.2 Old myocardial infarction; Z95.5 Presence of coronary angioplasty implant and graft; Z79.01 Long term (current) use of anticoagulants; Z79.82 Long term (current) use of aspirin; Z79.899 Other long term (current) drug therapy; Z87.891 Personal history of nicotine dependence; W19.XXXA Unspecified fall, initial encounter
CPT/HCPCS: 73564; 99283; A9270

== ENCOUNTER 2022-06-04 13:46 | Emergency (ER) | payer MEDICAID ==
[2022-06-04 15:23] VITALS: PULSE 60
[2022-06-04 19:30] VITALS: BP 124/89
== END 2022-06-04 19:30 | disposition home or self-care (01) ==
LOC: JD.ED 13:46
DX: K62.5 Hemorrhage of anus and rectum (principal); R73.9 Hyperglycemia, unspecified; K64.9 Unspecified hemorrhoids; I25.10 Atherosclerotic heart disease of native coronary artery without angina pectoris; I10 Essential (primary) hypertension; I25.2 Old myocardial infarction; Z79.899 Other long term (current) drug therapy; Z79.01 Long term (current) use of anticoagulants; Z79.82 Long term (current) use of aspirin
CPT/HCPCS: 36415; 80053; 85025; 99283

== ENCOUNTER 2022-12-18 20:30 | Emergency (ER) | payer BC, MEDICAID ==
[2022-12-18] MEDS ORDERED: Sodium Chloride 0.9% 10 ML Syringe FLUSH PRN (21:01)
[2022-12-18] MEDS ORDERED: Ketorolac 30 MG/ML SDV IVPUSH ONE (21:02)
[2022-12-18] MEDS ORDERED: HYDROmorphone 1 MG/ML Syringe IVPUSH ONE (21:03)
[2022-12-18] MEDS ORDERED: Vancomycin 1.75 GM in Sodium Chloride 0.9% 500 ML IV ONE (22:11)
[2022-12-18] MEDS ORDERED: cefTRIAXone 1 GM in Sodium Chloride 0.9% 100 ML IV ONE (22:15)
[2022-12-18 23:32] LABS: CORONAVIRUS COVID-19 NAA NEGATIVE (NEGATIVE)
[2022-12-19] MEDS ORDERED: HYDROmorphone 0.5 MG/0.5 ML Syringe IVPUSH ONE ×2 (01:00→06:41)
[2022-12-19] MEDS ORDERED: HYDROmorphone 0.5 MG/0.5 ML Syringe ONE (08:48)
[2022-12-19 09:06] VITALS: BP 138/74; PULSE 90
== END 2022-12-19 09:02 ==
LOC: JD.ED 20:30
DX: M00.9 Pyogenic arthritis, unspecified (principal); I25.10 Atherosclerotic heart disease of native coronary artery without angina pectoris; E78.00 Pure hypercholesterolemia, unspecified; I10 Essential (primary) hypertension; I25.2 Old myocardial infarction; K21.9 Gastro-esophageal reflux disease without esophagitis; Z79.82 Long term (current) use of aspirin; Z79.01 Long term (current) use of anticoagulants; Z79.899 Other long term (current) drug therapy; Z20.822 Contact with and (suspected) exposure to COVID-19
CPT/HCPCS: 0241U; 36415; 80053; 83605; 85025; 85652; 86140; 87040; 96365; 96366; 96367; 96375; 99284; 99284-25; J0696; J1170; J1885; J3370; J3490; J7040

== ENCOUNTER 2023-03-02 14:52 | Emergency (ER) | payer MEDICAID ==
[2023-03-02] MEDS ORDERED: Ondansetron 4 MG/2 ML SDV IVPUSH ONE (15:44)
[2023-03-02] MEDS ORDERED: Sodium Chloride 0.9% 10 ML Syringe FLUSH PRN (15:44)
[2023-03-02] MEDS ORDERED: Famotidine 20 MG/2 ML SDV IVPUSH ONE (15:45)
[2023-03-02] MEDS ORDERED: Sodium Chloride 0.9% 1,000 ML IV SCH (15:45)
[2023-03-02 16:26] VITALS: BP 163/73; PULSE 78
[2023-03-02] MEDS ORDERED: Magnesium Sulfate/Water 2 GM in Premix Bag 1 BAG IV ONE (17:07)
[2023-03-02] MEDS ORDERED: Metoclopramide 10 MG/2 ML SDV IVPUSH ONE (17:12)
== END 2023-03-02 19:41 | disposition home or self-care (01) ==
LOC: JD.ED 14:52
DX: E83.42 Hypomagnesemia (principal); F10.230 Alcohol dependence with withdrawal, uncomplicated; I25.10 Atherosclerotic heart disease of native coronary artery without angina pectoris; E78.00 Pure hypercholesterolemia, unspecified; I10 Essential (primary) hypertension; I25.2 Old myocardial infarction; K21.9 Gastro-esophageal reflux disease without esophagitis; Z87.891 Personal history of nicotine dependence; Z79.82 Long term (current) use of aspirin; Z79.899 Other long term (current) drug therapy
CPT/HCPCS: 36415; 80053; 80306; 80307; 83735; 85025; 96361; 96365; 96366; 96375; 99284; J2405; J2765; J3475; J3490; J7030; 99283

== ENCOUNTER 2023-12-23 14:49 | Emergency (ER) | payer BC, MEDICAID ==
[2023-12-23] MEDS: Aspirin 81 MG Tab.Chew PO ONE (15:51)
[2023-12-23] MEDS: Sodium Chloride 0.9% 10 ML Syringe FLUSH PRN (15:58)
[2023-12-23 16:33] LABS: D-DIMER QUANTITATIVE 0.21 mg/L (0.19-0.50); INR 1.02; PROTHROMBIN TIME 10.9 SECONDS (9.7-12.0)
[2023-12-23 16:42] LABS: ALBUMIN 3.7 g/dl (3.4-5.0); ANION GAP 12.1 (5-15); BILIRUBIN TOTAL 0.8 mg/dL (0.2-1.0); BUN/CREATININE RATIO 15.4 (14-18); CALCIUM 8.7 mg/dL (8.5-10.1); CREATININE 1.3 mg/dL (0.7-1.3); EST CRCL DRUG DOSING (CG) 49.33 mL/min; MAGNESIUM 1.8 mg/dL (1.8-2.4); POTASSIUM,K 4.1 mEq/L (3.5-5.1); PROTEIN TOTAL,TP 7.5 g/dl (6.4-8.2)
[2023-12-23 17:15] LABS: BASOPHILS ABSOLUTE AUTO 0.2 K/mm3 (0.0-0.2); BASOPHILS PERCENT AUTO 1.8 % (0.0-1.0); EOSINOPHILS ABSOLUTE AUTO 0.3 K/mm3 (0.0-0.4); EOSINOPHILS PERCENT AUTO 3.6 % (0.0-6.0); HEMATOCRIT 46.4 % (42.0-52.0); HEMOGLOBIN 15.4 gm/dl (14.0-18.0); IMMATURE GRAN ABSOLUTE AUTO 0.02 K/mm3 (0.00-0.05); IMMATURE GRAN PERCENT AUTO 0.2 % (0.0-0.4); LYMPHOCYTES ABSOLUTE AUTO 1.8 K/mm3 (1.0-4.8); LYMPHOCYTES PERCENT AUTO 20.7 % (24.0-44.0); MEAN CORPUSCULAR HEMOGLOBIN 30.1 pg (28.0-32.0); MEAN CORPUSCULAR HGB CONC 33.2 g/dl (32.0-36.0); MEAN CORPUSCULAR VOLUME 90.8 fl (83.0-99.0); MEAN PLATELET VOLUME 11.1 fl (9.4-12.4); MONOCYTES ABSOLUTE AUTO 0.8 K/mm3 (0.0-0.8); MONOCYTES PERCENT AUTO 9.8 % (0.0-8.0); NEUTROPHILS ABSOLUTE AUTO 5.4 K/mm3 (1.8-7.7); NEUTROPHILS PERCENT AUTO 63.9 % (41.0-71.0); PLATELET COUNT,PLT 218 K/mm3 (150-400); RED BLOOD CELL COUNT 5.11 M/mm3 (4.52-5.90)
[2023-12-23] MEDS: Nitroglycerin 0.4 MG Tab.SL SL PRN (17:34)
[2023-12-23] MEDS: Heparin Sodium 5,000 Units/ML Vial IVPUSH ONE (17:35)
[2023-12-23] MEDS: Heparin Sodium/D5W 25,000 UNITS/500 ML BAG IV SCH (17:39)
[2023-12-23 20:53] VITALS: BP 123/97; PULSE 60
== END 2023-12-23 20:30 ==
LOC: JD.ED 14:49
DX: I21.4 Non-ST elevation (NSTEMI) myocardial infarction (principal); I10 Essential (primary) hypertension; E78.00 Pure hypercholesterolemia, unspecified; I25.10 Atherosclerotic heart disease of native coronary artery without angina pectoris; I25.2 Old myocardial infarction; K21.9 Gastro-esophageal reflux disease without esophagitis; Z95.5 Presence of coronary angioplasty implant and graft; Z79.82 Long term (current) use of aspirin; Z79.01 Long term (current) use of anticoagulants; Z79.899 Other long term (current) drug therapy
CPT/HCPCS: 36415; 71046; 80053; 83735; 84484; 85025; 85379; 85610; 93005; 96365; 96366; 99285; A9270; J1644; J3490

== ENCOUNTER 2024-05-18 09:40 | Emergency (ER) | payer BC ==
[2024-05-18 10:38] LABS: BASOPHILS ABSOLUTE AUTO 0.1 K/mm3 (0.0-0.2); BASOPHILS PERCENT AUTO 1.7 % (0.0-1.0); EOSINOPHILS ABSOLUTE AUTO 0.2 K/mm3 (0.0-0.4); HEMOGLOBIN 17.6 gm/dl (14.0-18.0); IMMATURE GRAN ABSOLUTE AUTO 0.03 K/mm3 (0.00-0.05); IMMATURE GRAN PERCENT AUTO 0.4 % (0.0-0.4); LYMPHOCYTES ABSOLUTE AUTO 1.7 K/mm3 (1.0-4.8); LYMPHOCYTES PERCENT AUTO 24.7 % (24.0-44.0); MEAN CORPUSCULAR HEMOGLOBIN 31.6 pg (28.0-32.0); MEAN CORPUSCULAR HGB CONC 33.8 g/dl (32.0-36.0); MEAN CORPUSCULAR VOLUME 93.4 fl (83.0-99.0); MEAN PLATELET VOLUME 10.9 fl (9.4-12.4); MONOCYTES ABSOLUTE AUTO 0.5 K/mm3 (0.0-0.8); NEUTROPHILS ABSOLUTE AUTO 4.4 K/mm3 (1.8-7.7); NEUTROPHILS PERCENT AUTO 63.2 % (41.0-71.0); PLATELET COUNT,PLT 206 K/mm3 (150-400); RED BLOOD CELL COUNT 5.57 M/mm3 (4.52-5.90); WHITE BLOOD CELL COUNT,WBC 6.97 K/mm3 (3.9-11.3)
[2024-05-18 11:01] LABS: A/G RATIO 0.9 (1-2); ALANINE AMINOTRANSFERASE,ALT 40 U/L (16-63); ALBUMIN 3.8 g/dl (3.4-5.0); ALKALINE PHOSPHATASE 42 U/L (46-116); ANION GAP 16.8 (5-15); BILIRUBIN TOTAL 1.1 mg/dL (0.2-1.0); BLOOD UREA NITROGEN,BUN 14 mg/dL (7-18); BUN/CREATININE RATIO 11.7 (14-18); CALCIUM 9.2 mg/dL (8.5-10.1); CARBON DIOXIDE,CO2 25 mEq/L (21-32); CHLORIDE,CL 103 mEq/L (98-107); CREATININE 1.2 mg/dL (0.7-1.3); ESTIMATED GFR 68 mL/min (>60); GLUCOSE RANDOM 152 mg/dL (70-99); MAGNESIUM 1.7 mg/dL (1.8-2.4); SODIUM,NA 140 mEq/L (136-145)
[2024-05-18 11:14] LABS: ASPARTATE AMNIOTRANSFERASE,AST 66 U/L (15-37); POTASSIUM,K 4.8 mEq/L (3.5-5.1); TROPONIN I HIGH SENSITIVITY 1313 pg/mL (<=76)
[2024-05-18] MEDS: Sodium Chloride 0.9% 10 ML Syringe FLUSH PRN (11:43)
[2024-05-18 17:03] VITALS: BP 150/93; PULSE 90
== END 2024-05-18 15:26 ==
LOC: JD.ED 09:40
DX: T82.198A Other mechanical complication of other cardiac electronic device, initial encounter (principal); E78.00 Pure hypercholesterolemia, unspecified; I10 Essential (primary) hypertension; K21.9 Gastro-esophageal reflux disease without esophagitis; Z79.899 Other long term (current) drug therapy
CPT/HCPCS: 36415; 71045; 80053; 83735; 83880; 84484; 85025; 93005; 99285; J3490

== ENCOUNTER 2024-10-06 08:18 | Emergency (ER) | payer BC ==
[2024-10-06] MEDS ORDERED: Sodium Chloride 0.9% 10 ML Syringe FLUSH PRN (08:54)
[2024-10-06] MEDS: Sodium Chloride 0.9% 1,000 ML IV SCH (09:14)
[2024-10-06] MEDS: Ondansetron 4 MG/2 ML SDV IVPUSH ONE (09:14)
[2024-10-06 09:31] LABS: BASOPHILS ABSOLUTE AUTO 0.1 K/mm3 (0.0-0.2); BASOPHILS PERCENT AUTO 0.9 % (0.0-1.0); EOSINOPHILS PERCENT AUTO 0.2 % (0.0-6.0); HEMATOCRIT 48.2 % (42.0-52.0); HEMOGLOBIN 17.1 gm/dl (14.0-18.0); IMMATURE GRAN ABSOLUTE AUTO 0.03 K/mm3 (0.00-0.05); IMMATURE GRAN PERCENT AUTO 0.3 % (0.0-0.4); LYMPHOCYTES ABSOLUTE AUTO 0.7 K/mm3 (1.0-4.8); LYMPHOCYTES PERCENT AUTO 6.7 % (24.0-44.0); MEAN CORPUSCULAR HEMOGLOBIN 34.1 pg (28.0-32.0); MEAN CORPUSCULAR HGB CONC 35.5 g/dl (32.0-36.0); MEAN PLATELET VOLUME 10.4 fl (9.4-12.4); MONOCYTES ABSOLUTE AUTO 0.6 K/mm3 (0.0-0.8); MONOCYTES PERCENT AUTO 5.7 % (0.0-8.0); NEUTROPHILS ABSOLUTE AUTO 8.3 K/mm3 (1.8-7.7); NEUTROPHILS PERCENT AUTO 86.2 % (41.0-71.0); PLATELET COUNT,PLT 166 K/mm3 (150-400); RED BLOOD CELL COUNT 5.02 M/mm3 (4.52-5.90); WHITE BLOOD CELL COUNT,WBC 9.66 K/mm3 (3.9-11.3)
[2024-10-06 09:53] LABS: ALBUMIN 3.6 g/dl (3.4-5.0); BILIRUBIN TOTAL 1.6 mg/dL (0.2-1.0); CALCIUM 8.2 mg/dL (8.5-10.1); CREATININE 1.2 mg/dL (0.7-1.3); EST CRCL DRUG DOSING (CG) 51.37 mL/min; MAGNESIUM 1.8 mg/dL (1.8-2.4); PROTEIN TOTAL,TP 7.3 g/dl (6.4-8.2)
[2024-10-06] MEDS: Heparin Sodium 5,000 Units/ML Vial IVPUSH ONE (10:30)
[2024-10-06] MEDS: Aspirin 81 MG Tab.Chew PO ONE (10:30)
[2024-10-06] MEDS: Heparin Sodium/D5W 250 ML IV SCH (10:31)
[2024-10-06] MEDS: Amiodarone 150 MG/100 ML 100 ML IV ONE (11:57)
[2024-10-06 12:41] VITALS: BP 167/95; PULSE 94
== END 2024-10-06 12:25 | disposition home or self-care (01) ==
LOC: JD.ED 08:18
DX: R11.2 Nausea with vomiting, unspecified (principal); R79.89 Other specified abnormal findings of blood chemistry; T82.897A Other specified complication of cardiac prosthetic devices, implants and grafts, initial encounter; I10 Essential (primary) hypertension; E78.00 Pure hypercholesterolemia, unspecified; K21.9 Gastro-esophageal reflux disease without esophagitis; Z79.899 Other long term (current) drug therapy; Z79.82 Long term (current) use of aspirin
CPT/HCPCS: 36415; 71045; 80053; 83735; 84484; 85025; 87428; 93005; 96361; 96365; 96375; 99284; A9270; J0282; J1644; J2405; J7030

== ENCOUNTER 2024-10-28 06:40 | Emergency (ER) | payer BC ==
[2024-10-28] MEDS: Sodium Chloride 0.9% 500 ML IV ONE (06:58)
[2024-10-28 07:12] LABS: BASOPHILS ABSOLUTE AUTO 0.1 K/mm3 (0.0-0.2); BASOPHILS PERCENT AUTO 2.4 % (0.0-1.0); EOSINOPHILS ABSOLUTE AUTO 0.2 K/mm3 (0.0-0.4); EOSINOPHILS PERCENT AUTO 3.7 % (0.0-6.0); HEMATOCRIT 46.7 % (42.0-52.0); HEMOGLOBIN 16.9 gm/dl (14.0-18.0); IMMATURE GRAN ABSOLUTE AUTO 0.01 K/mm3 (0.00-0.05); IMMATURE GRAN PERCENT AUTO 0.2 % (0.0-0.4); LYMPHOCYTES PERCENT AUTO 18.8 % (24.0-44.0); MEAN CORPUSCULAR HEMOGLOBIN 34.8 pg (28.0-32.0); MEAN CORPUSCULAR HGB CONC 36.2 g/dl (32.0-36.0); MEAN CORPUSCULAR VOLUME 96.3 fl (83.0-99.0); MEAN PLATELET VOLUME 10.7 fl (9.4-12.4); MONOCYTES ABSOLUTE AUTO 0.6 K/mm3 (0.0-0.8); MONOCYTES PERCENT AUTO 10.3 % (0.0-8.0); NEUTROPHILS ABSOLUTE AUTO 3.5 K/mm3 (1.8-7.7); NEUTROPHILS PERCENT AUTO 64.6 % (41.0-71.0); PLATELET COUNT,PLT 118 K/mm3 (150-400); RED BLOOD CELL COUNT 4.85 M/mm3 (4.52-5.90); WHITE BLOOD CELL COUNT,WBC 5.42 K/mm3 (3.9-11.3)
[2024-10-28] MEDS: LORazepam 2 MG/ML SDV IVPUSH ONE (07:17)
[2024-10-28] MEDS: Metoclopramide 10 MG/2 ML SDV IVPUSH ONE (07:19)
[2024-10-28] MEDS: Sodium Chloride 0.9% 10 ML Syringe FLUSH PRN (07:21)
[2024-10-28 07:40] LABS: LACTIC ACID 3.9 mmol/L (0.4-2.0)
[2024-10-28 07:42] LABS: A/G RATIO 0.9 (1-2); ALBUMIN 3.1 g/dl (3.4-5.0); BILIRUBIN TOTAL 1.2 mg/dL (0.2-1.0); BUN/CREATININE RATIO 7.7 (14-18); CALCIUM 7.9 mg/dL (8.5-10.1); CREATININE 1.3 mg/dL (0.7-1.3); EST CRCL DRUG DOSING (CG) 45.5 mL/min; ETHANOL BLOOD MEDICAL 0.26 gm% (0.00); MAGNESIUM 1.5 mg/dL (1.8-2.4); PROTEIN TOTAL,TP 6.4 g/dl (6.4-8.2)
[2024-10-28] MEDS: Iopamidol 755 Mg/ML 100 ML Bottle IVPUSH ONE (08:25)
[2024-10-28] MEDS ORDERED: Sodium Chloride 0.9% 100 ML IV SCH (08:30)
[2024-10-28 09:42] LABS: APPEARANCE,URINE CLEAR (Clear); BILIRUBIN,URINE NEGATIVE (Negative); COLOR,URINE YELLOW (Yellow); GLUCOSE,URINE NEGATIVE (Negative); KETONES,URINE NEGATIVE (Negative); LEUKOCYTE ESTERASE,URINE NEGATIVE (Negative); NITRITE,URINE NEGATIVE (Negative); OCCULT BLOOD,URINE NEGATIVE (Negative); PH,URINE 7.5 (5.0-8.0); PROTEIN,URINE 2+ (Negative); UROBILINOGEN,URINE 0.2 (0.2-1.0)
[2024-10-28 09:53] LABS: BACTERIA,URINE FEW /hpf (FEW); MUCUS,URINE FEW /hpf (FEW); RBC,URINE 0-5 /hpf (0-5); SQUAMOUS EPITHELIAL CELLS,UR 0-5 /hpf (0-5); WBC,URINE 0-5 /hpf (0-5)
[2024-10-28] MEDS: Heparin Sodium 5,000 Units/ML Vial IVPUSH ONE (10:57)
[2024-10-28] MEDS: Sodium Chloride 0.9% 1,000 ML IV SCH (10:59)
[2024-10-28] MEDS: Heparin Sodium/D5W 250 ML IV SCH (11:03)
[2024-10-28] MEDS: Magnesium Sulfate/Water Premix 2 GM/50 ML BAG IV ONE (11:10)
[2024-10-28] MEDS: Aspirin 81 MG Tab.Chew PO ONE (11:13)
[2024-10-28 14:48] VITALS: BP 174/101; PULSE 109
== END 2024-10-28 13:15 ==
LOC: JD.ED 06:40
DX: I21.4 Non-ST elevation (NSTEMI) myocardial infarction (principal); R55 Syncope and collapse; F10.920 Alcohol use, unspecified with intoxication, uncomplicated; R79.89 Other specified abnormal findings of blood chemistry; E83.42 Hypomagnesemia; I10 Essential (primary) hypertension; I25.10 Atherosclerotic heart disease of native coronary artery without angina pectoris; I25.2 Old myocardial infarction; K21.9 Gastro-esophageal reflux disease without esophagitis; M19.90 Unspecified osteoarthritis, unspecified site; E78.00 Pure hypercholesterolemia, unspecified; Z79.82 Long term (current) use of aspirin; Z79.899 Other long term (current) drug therapy
CPT/HCPCS: 36415; 70450; 71045; 71275; 72125; 80053; 80307; 81001; 83605; 83735; 83880; 84484; 85025; 85379; 87040; 87428; 93005; 96361; 96365; 96366; 96368; 96375; 99285; A9270; J1644; J2060; J2765; J3475; J7030; Q9967

== ENCOUNTER 2024-12-01 16:23 | Emergency (ER) | payer BC ==
[2024-12-01 16:49] VITALS: BP 134/75; PULSE 60
[2024-12-01 17:59] LABS: BASOPHILS ABSOLUTE AUTO 0.1 K/mm3 (0.0-0.2); BASOPHILS PERCENT AUTO 0.7 % (0.0-1.0); EOSINOPHILS ABSOLUTE AUTO 0.3 K/mm3 (0.0-0.4); EOSINOPHILS PERCENT AUTO 3.7 % (0.0-6.0); HEMATOCRIT 42.6 % (42.0-52.0); HEMOGLOBIN 14.5 gm/dl (14.0-18.0); IMMATURE GRAN ABSOLUTE AUTO 0.04 K/mm3 (0.00-0.05); IMMATURE GRAN PERCENT AUTO 0.5 % (0.0-0.4); LYMPHOCYTES ABSOLUTE AUTO 1.3 K/mm3 (1.0-4.8); LYMPHOCYTES PERCENT AUTO 16.3 % (24.0-44.0); MEAN CORPUSCULAR HEMOGLOBIN 32.9 pg (28.0-32.0); MEAN CORPUSCULAR VOLUME 96.6 fl (83.0-99.0); MEAN PLATELET VOLUME 10.4 fl (9.4-12.4); MONOCYTES ABSOLUTE AUTO 0.9 K/mm3 (0.0-0.8); MONOCYTES PERCENT AUTO 10.5 % (0.0-8.0); NEUTROPHILS ABSOLUTE AUTO 5.6 K/mm3 (1.8-7.7); NEUTROPHILS PERCENT AUTO 68.3 % (41.0-71.0); PLATELET COUNT,PLT 188 K/mm3 (150-400); RED BLOOD CELL COUNT 4.41 M/mm3 (4.52-5.90); WHITE BLOOD CELL COUNT,WBC 8.12 K/mm3 (3.9-11.3)
[2024-12-01 18:30] LABS: ALBUMIN 3.3 g/dl (3.4-5.0); ANION GAP 13.6 (5-15); BILIRUBIN TOTAL 0.7 mg/dL (0.2-1.0); BUN/CREATININE RATIO 12.4 (14-18); C-REACTIVE PROTEIN 2.47 mg/dL (<0.30); CALCIUM 8.7 mg/dL (8.5-10.1); CREATININE 1.7 mg/dL (0.7-1.3); EST CRCL DRUG DOSING (CG) 37.24 mL/min; POTASSIUM,K 4.6 mEq/L (3.5-5.1); PROTEIN TOTAL,TP 6.7 g/dl (6.4-8.2)
[2024-12-01] MEDS: Sodium Chloride 0.9% 1,000 ML IV ONE (19:15)
[2024-12-01] MEDS: Famotidine 20 MG/2 ML SDV IVPUSH ONE (19:16)
[2024-12-01] MEDS: Ondansetron 4 MG/2 ML SDV IVPUSH ONE (20:15)
== END 2024-12-01 21:02 | disposition home or self-care (01) ==
LOC: JD.ED 16:23
DX: K52.9 Noninfective gastroenteritis and colitis, unspecified (principal); I10 Essential (primary) hypertension; I25.10 Atherosclerotic heart disease of native coronary artery without angina pectoris; I25.2 Old myocardial infarction; K21.9 Gastro-esophageal reflux disease without esophagitis; M19.90 Unspecified osteoarthritis, unspecified site; Z79.82 Long term (current) use of aspirin; Z79.899 Other long term (current) drug therapy; Z87.891 Personal history of nicotine dependence
CPT/HCPCS: 36415; 80053; 83690; 85025; 86140; 96361; 96374; 96375; 99284; J2405; J7030